=== PATIENT | female | born 1970 | race Caucasian/White ===

== ENCOUNTER 2025-04-04 00:34 | Outpatient (CLI) | payer MEDICAID, SELFPAY ==
--- NOTE | 2025-04-04 | DI.US_ITS ---
Exam(s) US ABDOMEN LIMITED EXAM: US ABDOMEN LIMITED CLINICAL HISTORY: GALLSTONE,K80.20 TECHNIQUE: Ultrasound abdomen performed using standard protocol. COMPARISON: No exams were available for comparison FINDINGS: PANCREAS: Normal where visualized. LIVER: Normal. Hepatopetal flow in the Portal Vein. The liver measures in 15.1 cm length. No evidence of a hepatic mass. GALLBLADDER:There is a 1.2 cm mobile gallstone. No evidence of wall thickening. No pericholecystic fluid identified. BILIARY SYSTEM: Common bile duct measures < 7 mm. No intrahepatic biliary ductal dilation. MARTINEZ'S SIGN: Negative. RIGHT KIDNEY: Kidney is normal in size. No evidence of renal calculi. There is mild dilatation of the right renal collecting system. No renal mass or cyst identified. ASCITES: None seen. IMPRESSION: 1. Cholelithiasis without evidence of acute cholecystitis. 2. Mild right hydronephrosis. Follow-up as clinically appropriate. Unexpected findings DATA REPOSITORY:
--- NOTE | 2025-04-04 | DI.RAD_ITS ---
Exam(s) XR ELBOW RT COMPLETE EXAM: XR ELBOW RT COMPLETE CLINICAL HISTORY: PAIN RT ELBOW, M25.521. TECHNIQUE: 2D digital imaging was performed of the left elbow. Three images were obtained. AP, lateral and oblique views were obtained. COMPARISON: No exams were available for comparison FINDINGS: BONES: No acute fracture is present. No bony destructive lesion is seen. There is an intramedullary oneida spanning the length of the visualized ulna. The distal aspect of the oneida is not included on this examination. No acute or healing fracture is identified. JOINTS: The elbow is normally aligned. No joint effusion is seen. SOFT TISSUE: Normal. 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 No evidence of an acute or healing fracture. DATA REPOSITORY: RADIATION DOSE DELIVERED:
--- NOTE | 2025-04-04 08:17 | DI.CT_ITS ---
Exam(s) CT HEAD WO EXAM: CT HEAD WO CLINICAL HISTORY: HEADACHE,R51. TECHNIQUE: Imaging Protocol: Axial computed tomography images with coronal and sagittal reformatted images were created and reviewed COMPARISON: No exams were available for comparison FINDINGS: Ventricles and Extra axial spaces: Normal in size and morphology for the patient's age. Hemorrhage: None. Cerebral parenchyma: There are areas of decreased attenuation in the white matter most suggestive of chronic microvascular ischemic disease. There is no acute territorial infarct. There is no mass effect. Midline shift: None. Brainstem/Cerebellum: Normal. Calvarium: Normal. Old nasal bone fractures are present. Visualized Paranasal sinuses/Mastoids: Clear. Soft Tissues: Unremarkable. IMPRESSION: No acute intracranial process. RADIATION DOSE DELIVERED: 876.07mGy.cm Total DLP DATA REPOSITORY: All CT scans at this facility are submitted to the National Radiology Data Registry (NRDR) Dose Index Registry (DIR) with the [employer] (A[employer]). RADIATION OPTIMIZATION: All CT scans at this facility use at least one of these dose optimization techniques: automated exposure control; mA and/or kV adjustment per patient size (includes targeted exams where dose is matched to clinical indication); or iterative reconstruction.
== END 2025-04-04 00:54 ==
PROVIDERS: PCP Nurse Practitioner Family; Visit Provider Nurse Practitioner Family
DX: R51.9 Headache, unspecified (principal); M25.521 Pain in right elbow; K80.20 Calculus of gallbladder without cholecystitis without obstruction
CPT/HCPCS: 70450; 73080; 76705

== ENCOUNTER 2025-07-26 07:03 | Day surgery (SDC) | payer MEDICAID, SELFPAY ==
[2025-07-26 07:25] VITALS: BP 133/77; PULSE 76; RESP 16; TEMP 36.6; O2SAT 99
[2025-07-26] MEDS: Lactated Ringers 1,000 ML 80 ML IV (07:50)
[2025-07-26 08:10] VITALS: BMI 29.7
--- NOTE | 2025-07-26 08:10 | W.ANESPRE ---
General Info Date of Service Date Performed: 07/26/25 Height: 4 ft 11 in Weight: 66.7 kg Body Mass Index (BMI): 29.7 Surgical Procedure: Operation Date: 07/26/25 08:35 Proposed Procedure Side Surgeon p Gastroscopy Sharon Hernandez MD Meds Allergies and Home Medications Allergies Allergy/AdvReac Type Severity Reaction Status Date / Time No Known Allergies Allergy Verified 07/26/25 07:16 Home Medication ?Medication ?Instructions ?Recorded losartan 100 1 tab PO DAILY 04/16/25 mg-hydrochlorothiazide 25 mg tablet pantoprazole 40 mg tablet,delayed 40 mg PO DAILY 04/16/25 release diclofenac sodium 1 % topical gel 2 g topical QID 07/11/25 Current Visit Medications: Current Medications Generic Name Dose Route Start Last Admin Trade Name Freq PRN Reason Stop Dose Admin Ringer's Solution 1,000 mls @ 80 mls/hr 07/26/25 06:00 07/26/25 07:50 IV 07/26/25 23:59 80 mls/hr INFUSION NELLY Administration IV Miscellaneous Supplies 1 each 07/26/25 06:00 Iv Access IV 07/26/25 23:59 DIRECTED NELLY Sodium Chloride 0 ml 07/26/25 06:00 Normal Saline Flush 10 Ml Syr IV 07/26/25 23:59 PRN PRN Sodium Chloride 0 ml 07/26/25 06:00 Normal Saline 10 Ml Vial IJ 07/26/25 23:59 DIRECTED PRN Sterile Water 0 ml 07/26/25 06:00 Water,Injection,Sterile 10 Ml Vial IJ 07/26/25 23:59 DIRECTED PRN PFSH Active Problems Active Problems: Problem Status Onset Code Sternal deformity Acute M95.4 Migraine headache without aura Acute G43.009 Vascular headache Acute G44.1 Hydronephrosis Acute N13.30 Thyroid dysfunction Acute E07.9 Chronic headaches Acute R51.9, G89.29 Right arm pain Acute M79.601 Neck pain Acute M54.2 GERD without esophagitis Acute K21.9 Essential hypertension Acute I10 Chronic pain Chronic G89.29 Medical History Medical History Fatty liver Hx of hepatitis Diffuse spasm of esophagus Anxiety Gallstone TBI (traumatic brain injury) 25 years ago-released from care Tobacco Smoking/Tobacco Use Status: Never Passive smoking exposure: No Alcohol Alcohol Intake: current Alcohol intake frequency: holidays/special occasions only Substance Use Substance use type: does not use Vital Signs and Lab Results Vital Signs Most Recent Vital Signs in EMR: Most Recent Vital Signs Temp Pulse Resp BP Pulse Ox 36.6 C 76 16 133/77 99 07/26/25 07:25 07/26/25 07:25 07/26/25 07:25 07/26/25 07:25 07/26/25 07:25 Anesthesia Assessment and Plan Anesthesia History Personal History: No History of Anesthesia Complications Family History: No Family History of Anesthesia Complications Exercise Tolerance Exercise Tolerance: Metabolic Equivalents>4 Pertinent Negatives Pertinent Negatives: No Symptoms of GERD Cardiac & Pulmonary Exam Cardiac Exam: Normal S1/S2 Heart Sounds Pulmonary Exam: Clear Bilateral Breath Sounds Implantable Cardiac Device Does patient have a Pacemaker or an ICD?: No Airway Exam Known Difficult Airway: No Mallampati Class: 2 Mouth Opening: Normal (> 3cm) Thyromental Distance: Greater than 3 cm Neck Range of Motion: Full ROM Neck Circumference: Normal Teeth Condition: Normal Dentition ASA Classification ASA Score: ASA 2 Emergency Case?: No NPO Status NPO Status: NPO Clears >2 hours, Solids >8 hours Anesthesia Plan Resuscitation Status: Full Code Anesthesia Technique: General Anesthesia Airway Planned: Natural Airway Monitors Used: Standard Monitors
--- NOTE | 2025-07-26 08:23 | BOWEL_PTH ---
PATIENT: Leticia Wilson LOC: [facility] U#:[id number] AGE/SX: 54/F ROOM: RE07/26/[address]: Sharon Hernandez : 1970 BED: DIS: 07/26/2025 SPEC #: [id number] RECD: 07/26/25 11:05 STATUS: KIRA REQ #: [id number] LISBETH: 07/26/25 08:[address]: Sharon Hernandez DEPT: Surgical Specimen RECD BY: Conchis Campuzano ENTERED: 07/26/25 11:06 SP TYPE: Bowel OTHR DR: Paige Ackerman Tissues: 1 - BIOPSY BOWEL 2 - STOMACH BIOPSY 3 - ESOPHAGUS BIOPSY Procedures: GROSS AND MICRO LEVEL 4 Comments: [id number]
[2025-07-26 08:33] VITALS: BP 95/61; PULSE 80; RESP 18; TEMP 36.2; O2SAT 97
--- NOTE | 2025-07-26 08:33 | W.PM.DSUDISC ---
Date of service: 07/26/25 Discharge Plan Disposition Patient Disposition: Home Condition: Good Discharge Details Reason For Visit: Dysphagia, GERD Attending Provider: Sharon Hernandez Primary Care Provider: Paige Ackerman Home Meds and New Rx's Prescriptions: Continued losartan-hydrochlorothiazide 100-25 mg tablet 1 tab PO DAILY pantoprazole 40 mg tablet,delayed release (DR/EC) 40 mg PO DAILY diclofenac sodium 1 % gel 2 g topical QID Rx Instructions: apply to single elbow, wrist or hand; for hand includes palm/fingers/back of hand Discharge Instructions Instructions: Hiatal hernia Additional Instructions: Your upper endoscopy went well today. You had evidence of a hiatal hernia or a small opening in the diaphragm between the chest and abdomen. You also had evidence of reflux. Some routine biopsies were performed today. Once your pathology returns we will discuss next steps. 1. Do not drive, drink alcohol, operate machinery, make critical decisions, or do activities that require coordination or balance for 24 hours. 2. Because air was put into your stomach during the procedure, expelling air or burping is normal. 3. Go directly to the emergency room if you notice any of the following: Develop chills (warm to touch), or if you have a thermometer and your temperature is above 101 Difficulty breathing or difficultly swallowing Persistent vomiting Severe abdominal pain, other than gas cramps Severe chest pain Black, tarry stools Any bleeding ? exceeding one tablespoon 4. Call your physician if the site where your intravenous was started becomes red, swollen, painful, and warm to touch. 5. Your physician has reviewed your pre-procedure medications. Please continue to take those medications as previously ordered. You will be given specific information/education regarding any changes to your medications before leaving. Stand Alone Forms: Anesthesia Discharge InstCourtney Souza (DSU) Activity:: Activity as Tolerated Diet:: As Tolerated Discharge Orders Discharge Orders: Discharge Order (Routine); Ordered 07/26/25 Ordered By: Sharon Hernandez
--- NOTE | 2025-07-26 08:38 | W.PM.ENDDOP ---
Date of service: 07/26/25 Time of Service: 08:38 Endoscopy Report DATE OF PROCEDURE: 07/26/25 PRE-OP DIAGNOSIS: Dysphagia, GERD POST-OP DIAGNOSIS: same PROCEDURE: Upper endoscopy with biopsy. SURGEON: Sharon Hernandez ANESTHESIA TYPE: General:No Airway ESTIMATED BLOOD LOSS: 2 PATHOLOGY: other (Duodenum, Antrum, GE junction biopsy ) COMPLICATIONS: None DISPOSITION: PACU INDICATIONS: Patient is a 54 yo female who presented with dysphagia and reflux symptoms. FINDINGS: Cold forcep biopsy performed of duodenum, antrum, and GE junction. Evidence of small hiatal hernia and irregular GE junction. PROCEDURE DESCRIPTION: After adequate sedation, the upper endoscope was inserted and advanced in the duodenum under direct visualization. The scope was withdrawn and the mucosa inspected. The duodenum appeared normal. A cold forcep biopsy of the duodenum was performed. The stomach was normal with no evidence of ulcerations or erosions. ?The antrum area was biopsied and also checked for H. pylori.? Retroflexion view in the stomach showed a small hiatal hernia. At the lower esophagus Z line area, this was inspected and noted to be irregular. A biopsy of the GE junction was performed. No evidence of strictures. Otherwise, the esophagus was normal. The scope was completely withdrawn from the patient. The patient tolerated the procedure well with no immediate complications.
--- NOTE | 2025-07-26 08:38 | W.ANESPOSTOP ---
Postoperative Evaluation Date, Time and Location Date Performed: 07/26/25 Time Performed: 08:38 Patient Location: Day Surgery Unit Vital Signs Most Recent Imported Vital Signs: Most Recent Vital Signs Temp Pulse Resp BP Pulse Ox 36.2 C L 80 18 95/61 L 97 07/26/25 08:33 07/26/25 08:33 07/26/25 08:33 07/26/25 08:33 07/26/25 08:33 Pain Score Most Recent Pain Score: Most Recent Pain Score Pain Level 0 07/26/25 08:33 Assessment Mental Status: Awake (Alert & Oriented to Patient Baseline) Airway and Respiratory Function: Patent airway with normal (patient baseline) respiratory exam Cardiovascular Function: Hemodynamically Stable Hydration Status: Adequately Hydrated Nausea & Vomiting: No Nausea or Vomiting Pain: Pt. Denies Any Pain Peripheral Nerve Block: Patient did not receive a nerve block
[2025-07-26 09:02] VITALS: BP 100/66; PULSE 65; RESP 16; TEMP 36; O2SAT 98
== END 2025-07-26 09:11 | disposition home or self-care (01) ==
PROVIDERS: PCP Nurse Practitioner Family; Visit Provider Student in an Organized Health Care Education/Training Program
PROC: 0DJ68ZZ Inspection of Stomach, Via Natural or Artificial Opening Endoscopic (ICD-10-PCS; CPT 43235; principal; 2025-07-26 08:30)
DX: R13.10 Dysphagia, unspecified (principal); K21.9 Gastro-esophageal reflux disease without esophagitis; K44.9 Diaphragmatic hernia without obstruction or gangrene; K31.9 Disease of stomach and duodenum, unspecified; K31.A0 Gastric intestinal metaplasia, unspecified
CPT/HCPCS: 43239; 88305; J2003; J2704